=== PATIENT | female | born 1975 | race Caucasian/White ===

== ENCOUNTER 2017-05-09 06:09 | Emergency (ER) | payer OTHER ==
[~2017-05-09] VITALS: Ht 154.9 cm; Wt 86.0 kg
[2017-05-09 06:20] VITALS: Ht 154.9 cm; Wt 86.0 kg
[2017-05-09] MEDS ORDERED: HYDROmorphONE 1 MG/ML SYG IV STA (06:55)
[2017-05-09] MEDS ORDERED: ONDANSETRON 4 MG INJ IV STA (06:55)
[2017-05-09 07:51] LABS: BASOPHILS % 0.3 % (0.0-2.0); EOSINOPHILS % 0.2 % (0.0-7.0); HEMATOCRIT 34.5 % (37.0-47.0); HEMOGLOBIN 11.6 g/dl (12.0-16.0); LYMPHOCYTES # 1.3 10^3/ul (0.8-2.9); LYMPHOCYTES % 13.4 % (15.0-51.0); MEAN CORPUSCULAR HEMOGLOBIN 28.2 pg (29.0-33.0); MEAN CORPUSCULAR HGB CONC 33.6 g/dl (32.0-37.0); MEAN CORPUSCULAR VOLUME 83.7 fl (82.0-101.0); MEAN PLATELET VOLUME 11.3 fl (7.4-10.4); MONOCYTE # 0.5 10^3/ul (0.3-0.9); MONOCYTES % 5.3 % (0.0-11.0); NEUTROPHIL # 7.9 10^3/ul (1.6-7.5); NEUTROPHILS % 80.5 % (39.0-77.0); PLATELET COUNT 316 10^3/UL (140-415); RED BLOOD COUNT 4.12 10^6/ul (4.20-5.40); RED CELL DISTRIBUTION WIDTH 13.2 % (11.5-14.5); WHITE BLOOD COUNT 9.8 10^3/ul (4.8-10.8)
[2017-05-09 07:56] LABS: ADD UMIC YES; UR ASCORBIC ACID NEGATIVE (NEGATIVE); UR BACTERIA FEW /HPF (NONE SEEN); UR BILIRUBIN (Dip) NEGATIVE (NEGATIVE); UR BLOOD (Dip) 2+ mg/dL (NEGATIVE); UR CLARITY CLOUDY (CLEAR); UR COLOR YELLOW (YELLOW); UR GLUCOSE (Dip) NEGATIVE (NEGATIVE); UR KETONES (Dip) NEGATIVE (NEGATIVE); UR LEUKOCYTE ESTERASE (Dip) NEGATIVE Leu/ul (NEGATIVE); UR MUCUS FEW /HPF (NONE SEEN); UR NITRITE (Dip) NEGATIVE (NEGATIVE); UR RBC 3 /HPF (0-5); UR SPECIFIC GRAVITY (Dip) 1.025 (1.003-1.030); UR SQUAMOUS EPITHELIAL CELL MODERATE /HPF (FEW); UR TOTAL PROTEIN (Dip) NEGATIVE (NEGATIVE); UR UROBILINOGEN (Dip) NEGATIVE (NEGATIVE)
[2017-05-09 08:07] LABS: ALBUMIN 4.3 g/dl (3.3-4.9); ALBUMIN/GLOBULIN RATIO 1.38; BILIRUBIN,INDIRECT 0.2 mg/dl (0-1.1); BILIRUBIN,TOTAL 0.2 mg/dl (0.2-1.3); CALCIUM 9.1 mg/dl (8.4-10.2); CREATININE 0.66 mg/dl (0.44-1.00); POTASSIUM 4.1 mmol/L (3.5-5.1); TOTAL PROTEIN 7.4 g/dl (6.1-8.1)
[2017-05-09] MEDS ORDERED: SOD CHLORIDE 0.9% 100 ML ONE (08:55)
[2017-05-09] MEDS ORDERED: IOHEXOL 300MG/ML 30 ML BTL ONE (08:55)
--- NOTE | 2017-05-09 09:58 | RADRPT ---
PROCEDURE: CT abdomen and pelvis with contrast. CLINICAL INDICATION: Abdominal pain. Nausea and vomiting. TECHNIQUE: CT scan of the abdomen and pelvis with contrast [facility] The patient was scanned following the uncomplicated intravenous administration 100 cc of Omnipa que 300. Coronal and sagittal reformatted images were obtained from the axial source images. One or more of the following does reduction techniques were used: Automated exposure control; adjustment of the mA and/or kV according to patient size; use of the aorta of reconstruction technique. Images were reviewed on a high-resolution PACS workstation. The total exam CTDI equals 14.3 mGy and the tot al exam DLP equals 882 mGy-cm. COMPARISON: None. FINDINGS: There are mild dependent changes in the posterior lower lobes.. The heart size is normal, without p ericardial thickening or effusion. The liver, spleen, and pancreas are normal. The gallbladder is normal. The adrenal glands are symmetric and normal. The kidneys show normal and symmetric enhancement. No renal calculus or obstructive uropathy is seen. The aorta is of normal caliber. There is no retroperitoneal lymph node enlargment. There is no evidence of large or small bowel obstruction. There is mild to moderate retained colonic stool. A normal appendix is identified. No free fluid or fluid collections are identified. No inf lammatory changes are seen. There is a small periumbilical hernia containing only fat Uterus is present. There is a 3.0 cm enhancing mass arising from the anterior fundus of the uterus most consistent with a fibroid. There is no evidence of pelvic sidewall lymph node enlargement. Th e bladder is within normal limits. No significant pelvic free fluid is identified. The inguinal re gions are unremarkable. The osseous structures are intact. IMPRESSION: 1. No CT evidence of acute intra-abdominal or pelvic process. 2. Small periumbilical hernia containing only fat. 3. Uterine fibroid. RPTAT: KK .Rashad Talley MD, MD Date Time Electronically viewed and signed by .Rashad Talley MD, MD on 05/09/2017 09:58 .B/
[2017-05-09] MEDS ORDERED: ONDA4TAB14 PO (10:08)
[2017-05-09] MEDS ORDERED: HYDR-902 PO (10:08)
--- NOTE | 2017-05-09 10:13 | ERD ---
ER Documentation Chief Complaint Date/Time DATE: 05/09/17 TIME: 10:10 Chief Complaint Pt with AP, nuasea and weakness since 4AM, denies N/V/D. HPI This is a 42-year-old female with complaints this morning at 4 AM with onset of diffuse lower abdominal pain with nausea and vomiting 1 no diarrhea. No bili is or blood in the vomit. Pain is described as crampy and intermittent. No back pain no dysuria. The patient states she is scheduled for hysterectomy on May 18 for some abnormal cells. She has no vaginal bleeding. ROS All systems reviewed and are negative except as per history of present illness. Medications Home Meds Active Scripts Hydrocodone/Acetaminophen ([place] 10-325 Tablet) 1 Each Tablet, 1 TAB PO Q6H Y for PAIN, #15 TAB Prov:HANK SPRAGUE DO 05/09/17 Ondansetron (Ondansetron Odt) 4 Mg Tab.rapdis, 4 MG PO Q6H Y for NAUSEA AND/OR VOMITING, #10 TAB Prov:HANK SPRAGUE DO 05/09/17 Allergies Allergies: Coded Allergies: No Known Allergy (Unverified , 05/09/17) PMhx/Soc Hx Miscellaneous Medical Probl: Yes (abnormal cells in uterus) Hx Alcohol Use: No Hx Substance Use: No Hx Tobacco Use: No FmHx Family History: No coronary disease Physical Exam Vitals Vital Signs Date Time Temp Pulse Resp B/P Pulse Ox O2 Delivery O2 Flow Rate FiO2 05/09/17 06:20 97.6 69 16 117/71 99 Physical Exam Const: Well-developed, well-nourished Head: Atraumatic, normocephalic Eyes: Normal Conjunctiva, PERRLA, EOMI, normal sclera, no nystagmus ENT: Normal External Ears, Nose and Mouth, moist mucus membranes. Neck: Full range of motion. No meningismus, no lymphadenopathy. Resp: Clear to auscultation bilaterally, no wheezing, rhonchi, rales Cardio: Regular rate and rhythm, no murmurs, S1 S2 present Abd: Soft, diffuse lower abdominal tenderness mild, non distended. Normal bowel sounds, no guarding or rebound, no pulsitile abdominal masses or bruits Skin: No petechiae or rashes, no ecchymosis , no maculopapular rash Back: No midline or flank tenderness Ext: No cyanosis, or edema, FROM x 4, normal inspection, neurovascularly intact x 4 Neur: Awake and alert, STR 5/5 x 4, sensation intact x 4, no focal findings, cerebellum intact Psych: Normal Mood and Affect Result Diagram: 05/09/17 0730 05/09/17 0730 Results 24 hrs Laboratory Tests Test 05/09/17 07:15 05/09/17 07:30 Urine Color YELLOW Urine Clarity CLOUDY Urine pH 5.0 Urine Specific [place] 1.025 Urine Ketones NEGATIVEmg/dL Urine Nitrite NEGATIVEmg/dL Urine Bilirubin NEGATIVEmg/dL Urine Urobilinogen NEGATIVEmg/dL Urine Leukocyte Esterase NEGATIVELeu/ul Urine Microscopic RBC 3/HPF Urine Microscopic WBC 3/HPF Urine Squamous Epithelial Cells MODERATE/HPF Urine Bacteria FEW/HPF Urine Mucus FEW/HPF Urine Hemoglobin 2+mg/dL Urine Glucose NEGATIVEmg/dL Urine Total Protein NEGATIVEmg/dl White Blood Count 9.810^3/ul Red Blood Count 4.1210^6/ul Hemoglobin 11.6g/dl Hematocrit 34.5% Mean Corpuscular Volume 83.7fl Mean Corpuscular Hemoglobin 28.2pg Mean Corpuscular Hemoglobin Concent 33.6g/dl Red Cell Distribution Width 13.2% Platelet Count 79767^3/UL Mean Platelet Volume 11.3fl Neutrophils % 80.5% Lymphocytes % 13.4% Monocytes % 5.3% Eosinophils % 0.2% Basophils % 0.3% Nucleated Red Blood Cells % 0.0/100WBC Neutrophils # 7.910^3/ul Lymphocytes # 1.310^3/ul Monocytes # 0.510^3/ul Eosinophils # 0.010^3/ul Basophils # 0.010^3/ul Nucleated Red Blood Cells # 0.010^3/ul Sodium Level 142mmol/L Potassium Level 4.1mmol/L Chloride Level 103mmol/L Carbon Dioxide Level 23mmol/L Anion Gap 20 Blood Urea Nitrogen 13mg/dl Creatinine 0.66mg/dl Glucose Level 108mg/dl Calcium Level 9.1mg/dl Total Bilirubin 0.2mg/dl Direct Bilirubin 0.00mg/dl Indirect Bilirubin 0.2mg/dl Aspartate Amino Transf (AST/SGOT) 25IU/L Alanine Aminotransferase (ALT/SGPT) 31IU/L Alkaline Phosphatase 67IU/L Total Protein 7.4g/dl Albumin 4.3g/dl Globulin 3.10g/dl Albumin/Globulin Ratio 1.38 Current Medications Medications (Trade) Dose Ordered Sig/Pastor Route PRN Reason Start Time Stop Time Status Last Admin Dose Admin Hydromorphone HCl (Dilaudid) 1 mg ONCE STAT IV 05/09/17 06:55 05/09/17 06:57 DC 05/09/17 07:35 Ondansetron HCl (Zofran Inj) 4 mg ONCE STAT IV 05/09/17 06:55 05/09/17 06:57 DC 05/09/17 07:35 IV Flush 10 ml 10 ml STK-MED ONCE .ROUTE 05/09/17 08:55 05/09/17 08:56 DC Sodium Chloride (NS) 100 ml @ ud STK-MED ONCE .ROUTE 05/09/17 08:55 05/09/17 08:56 DC Iohexol (Omnipaque 300mg/ ml) 30 ml STK-MED ONCE .ROUTE 05/09/17 08:55 05/09/17 08:56 DC Procedures/MDM PROCEDURE: CT abdomen and pelvis with contrast. CLINICAL INDICATION: Abdominal pain. Nausea and vomiting. TECHNIQUE: CT scan of the abdomen and pelvis with contrast was performed on a multi-slice CT scanner. The patient was scanned following the uncomplicated intravenous administration 100 cc of Omnipaque 300. Coronal and sagittal reformatted images were obtained from the axial source images. One or more of the following does reduction techniques were used: Automated exposure control; adjustment of the mA and/or kV according to patient size; use of the aorta of reconstruction technique. Images were reviewed on a high-resolution PACS workstation. The total exam CTDI equals 14.3 mGy and the total exam DLP equals 882 mGy-cm. COMPARISON: None. FINDINGS: There are mild dependent changes in the posterior lower lobes.. The heart size is normal, without pericardial thickening or effusion. The liver, spleen, and pancreas are normal. The gallbladder is normal. The adrenal glands are symmetric and normal. The kidneys show normal and symmetric enhancement. No renal calculus or obstructive uropathy is seen. The aorta is of normal caliber. There is no retroperitoneal lymph node enlargment. There is no evidence of large or small bowel obstruction. There is mild to moderate retained colonic stool. A normal appendix is identified. No free fluid or fluid collections are identified. No inflammatory changes are seen. There is a small periumbilical hernia containing only fat Uterus is present. There is a 3.0 cm enhancing mass arising from the anterior fundus of the uterus most consistent with a fibroid. There is no evidence of pelvic sidewall lymph node enlargement. The bladder is within normal limits. No significant pelvic free fluid is identified. The inguinal regions are unremarkable. The osseous structures are intact. IMPRESSION: 1. No CT evidence of acute intra-abdominal or pelvic process. 2. Small periumbilical hernia containing only fat. 3. Uterine fibroid. RPTAT: KK .Rashad Talley MD, Date Time Electronically viewed and signed by .Rashad Talley MD, MD on 2016 09:58 .B/ CC: HANK SPRAGUE DO CT scan of the abdomen of blood work looks relatively unremarkable. Patient may have had a bad food exposure, a viral illness of the GI tract. No signs of appendicitis diverticulitis perforation Treat with symptomatic control and observation at home. Gave discharge warning signs to return Departure Diagnosis: Primary Impression: Abdominal pain Abdominal location: lower abdomen, unspecified Qualified Code: R10.30 - Lower abdominal pain Condition: Stable Patient Instructions: Abdominal Pain Referrals: [facility] OSBORNE (PCP) HANK SPRAGUE DO May 09, 2017 10:13
[2017-05-09 10:27] VITALS: BP 115/68; PULSE 81; RESP 18
== END 2017-05-09 10:28 | disposition home or self-care (01) ==
LOC: FTE 06:09
DX: R10.30 Lower abdominal pain, unspecified (principal); R11.2 Nausea with vomiting, unspecified
CPT/HCPCS: 36415; 74177; 80053; 81001; 85025; 96374; 96375; J1170; J2405; Q9967; Z7502; Z7610

== ENCOUNTER 2017-05-18 05:49 | Inpatient (IN) | payer OTHER ==
--- NOTE | 2017-05-16 01:21 | PREOPHP ---
DATE OF ADMISSION: 05/18/2017 REASON FOR ADMISSION: This patient is coming on 05/18/2017 for a surgical procedure. HISTORY OF PRESENT ILLNESS: This is a 42-year-old female, 2, para 2. This patient had been suffering from pelvic pain that has been intractable, fibroid uterus, and the uterine prolapse, grade 3. This patient has been having difficulties having intercourse due to pain and pain in her back as well. She had tried control pills, with no alleviation of her pain and with ibuprofen, with no relief, and at this time she has been asking for a permanent alleviation of her pain. The patient had been calling that she is miserable in pain, that nothing helps and due to the fact that she has a fibroid and a prolapse, she was offered a vaginal hysterectomy. Since she has a tubal ligation, she is not interested in having more children and we will try to do the hysterectomy through a vaginal approach with the possibility of DAISY in case of problems. This patient had a history of having had a sling for bladder incontinence. This was done in 2010 and she had an Advantage Monarc sling done at [facility]. That was the only procedure done. The patient is content in her urine, but she is having severe pain all the time. PAST MEDICAL HISTORY: Negative for heart disease, negative for lung disease, negative for GI disease, and no endocrine disease or neurologic or orthopedic disease. PAST SURGICAL HISTORY: The only surgeries she had was foot surgery, tubal ligation, and bladder sling, suburethral sling. MEDICATIONS: She is on: 1. Motrin. 2. Zoloft. 3. Antiallergic medication. 4. Antibiotics for prevention of infection. 5. She was recently Ambien and Xanax due to some family problems with her parents, recent father's Day and date of . ALLERGIES: THE PATIENT HAS NO HISTORY OF ANY ALLERGIES, SOCIAL HISTORY: The patient has no history of drug addiction, smoking or drinking. FAMILY HISTORY: Hypertension. PHYSICAL EXAMINATION: VITAL SIGNS: Normal blood pressure of 120/80. She weighs 191 pounds. She is 5 feet 1 inch tall. HEENT: Normal. NECK: Normal. BREASTS: Soft, nontender, no masses. CHEST: Clear. HEART: Normal sinus rhythm. BACK: Normal. ABDOMEN: Soft, nontender, no masses. GENITOURINARY: Normal external genitalia. The bladder is always tender. Uterus retroverted, flexed, with a prolapse, grade 2-3, with possibility of fibroid, and painful mobilization on the uterus. The adnexa are negative. EXTREMITIES: Normal with normal pulses, normal reflexes, and no edema. DIAGNOSES: 1. Intractable pelvic pain and bleeding. 2. Suburethral sling procedure. 3. Fibroid uterus. 4. Pelvic prolapse, grade 2-3. 5. Anxiety. PLAN: She is undergoing a vaginal total hysterectomy, possible total abdominal hysterectomy. She has been advised of the possible risks and possible complications of the surgery with the alternatives and options. Written information was provided. She had no more questions, and agreed to go ahead with the procedure with full understanding and no more questions. Dictated By: Christine Quesada MD /jerod/alo /Document#: [id number]
[2017-05-18] VITALS (21 sets, daily range): BP systolic 90–127; BP diastolic 52–70; PULSE 61–95; RESP 14–21; Ht 154.9 cm; Wt 86.5 kg
[~2017-05-18] VITALS: Ht 154.9 cm; Wt 86.5 kg
[~2017-05-18 05:49] MED LIST: HEMOSTATIC MATRIX SYG ZFS ONE; HYDR-902 PO; ONDA4TAB14 PO
[2017-05-18 06:50] LABS: INR 0.91; PROTIME 12.3 Sec (12.2-14.2)
[2017-05-18 06:51] LABS: PARTIAL THROMBOPLASTIN TIME 28.7 Sec (25.0-35.0)
[2017-05-18] MEDS ORDERED: DEXTROSE 5%-LR 1,000 ML IV ONE (07:00)
[2017-05-18] MEDS ORDERED: CEFAZOLIN 1 GM INJ ONE (07:00)
[2017-05-18] MEDS ORDERED: CEFAZOLIN 2 GM/50 ML (PMX) 50 ML IVPB ONE (07:00)
[2017-05-18] MEDS ORDERED: ROCURONIUM 50 MG INJ ONE (07:00)
[2017-05-18] MEDS ORDERED: LIDOCAINE 2% (SDV) 5 ML INJ ONE (07:05)
[2017-05-18] MEDS ORDERED: PROPOFOL 20 ML ONE (07:05)
[2017-05-18] MEDS ORDERED: SUCCINYLCHOLINE CHLORIDE 100 MG/5 ML SYG IV ONE (07:05)
[2017-05-18] MEDS ORDERED: FENTAnyl 50 MCG/ML VIAL ONE ×2 (07:05→09:44)
[2017-05-18] MEDS ORDERED: MIDAZOLAM 1 MG/ML 2 ML INJ ONE (07:05)
[2017-05-18] MEDS ORDERED: BUPIVACAINE 0.25%/EPI (SDV) 10 ML INJ ONE (07:21)
[2017-05-18] MEDS ORDERED: THROMBIN 5000 UNIT VIAL ONE (07:30)
--- NOTE | 2017-05-18 07:43 | HPN ---
Date/Time of Note Date/Time of Note DATE: 05/18/17 TIME: 07:42 Interval H&P Admission Note Pt. seen H&P reviewed: No system changes KODAK STRINGER MD May 18, 2017 07:43
[2017-05-18] MEDS ORDERED: HYDROmorphONE (0.2 MG/ML) 10ML SYG IV PRN ×2 (08:00)
[2017-05-18] MEDS ORDERED: PROCHLORPERAZINE 10 MG INJ IV PRN (08:00)
[2017-05-18] MEDS ORDERED: oxyCODONE 5 MG TAB PO PRN ×2 (08:00)
[2017-05-18] MEDS ORDERED: EPHEDrine SULFATE 50 MG/5 ML SYG IV PRN (08:00)
[2017-05-18] MEDS ORDERED: FENTAnyl 50 MCG/ML VIAL IV PRN (08:00)
[2017-05-18] MEDS ORDERED: ONDANSETRON 4 MG INJ IV PRN ×2 (08:00→11:00)
[2017-05-18] MEDS ORDERED: hydrALAzine 20 MG INJ IV PRN (08:00)
[2017-05-18] MEDS ORDERED: MEPERIDINE 25 MG INJ IV PRN (08:00)
[2017-05-18] MEDS ORDERED: LABETALOL HCL 20MG INJ IV PRN (08:00)
[2017-05-18] MEDS ORDERED: DIPHENHYDRAMINE 50 MG INJ IV PRN (08:00)
[2017-05-18] MEDS ORDERED: ACETAMINOPHEN 1000MG/100ML IV 100 ML ONE (08:05)
[2017-05-18] MEDS ORDERED: METOCLOPRAMIDE 10 MG INJ ONE (08:05)
[2017-05-18] MEDS ORDERED: DEXAMETHASONE 4 MG/ML 1 ML INJ ONE (08:05)
[2017-05-18] MEDS ORDERED: ONDANSETRON 4 MG INJ ONE (08:05)
[2017-05-18] MEDS ORDERED: BUPIVACAINE 0.25%/EPI (SDV) 10 ML INJ INJ ONE (08:21)
[2017-05-18] MEDS ORDERED: KETOROLAC 30 MG INJ ONE (09:19)
[2017-05-18] MEDS ORDERED: GLYCOPYRROLATE 0.4 MG INJ ONE (09:20)
[2017-05-18] MEDS ORDERED: NEOSTIGMINE 3 MG/3 ML SYRINGE ONE (09:20)
[2017-05-18] MEDS: LACTATED RINGER'S 1,000 ML IV SCH ×3 (10:27→20:54)
[2017-05-18] MEDS ORDERED: BISACODYL (EC) 5 MG TAB PO PRN (10:30)
[2017-05-18] MEDS ORDERED: DIPHENHYDRAMINE 50 MG CAP PO PRN (10:30)
[2017-05-18] MEDS ORDERED: HYDROCODONE/APAP (5/325) TAB PO PRN (10:30)
[2017-05-18] MEDS ORDERED: ZOLPIDEM 5 MG TAB PO PRN (10:30)
--- NOTE | 2017-05-18 10:37 | OPR ---
Date/Time of Note Date/Time of Note DATE: 05/18/17 TIME: 10:34 Operative Report Procedure Date: May 18, 2017 Preoperative Diagnosis INTRACTABLE PELVIC PAIN AND BLEEDING FIBROID UTERUS Postoperative Diagnosis SAME POLYCYSTIC OVARIES Operation Performed VAGINAL TOTAL HYSTERECTOMY Surgeon: KODAK STRINGER MD social science research assistant: CHRISTEN COVARRUBIAS M.D. Anesthesia Type: spinal Estimated Blood Loss: 200 - 250 ml's Transfusion Required: no Specimens UTERUS Complications: no Pt Condition Post Procedure: stable Disposition: PACU KODAK STRINGER MD May 18, 2017 10:37
[2017-05-18] MEDS ORDERED: HYDROmorphONE 1 MG/ML SYG ONE (10:43)
[2017-05-18] MEDS: HYDROmorphONE 1 MG/ML SYG IV PRN ×3 (11:03→20:07)
--- NOTE | 2017-05-18 11:09 | OPR ---
DATE OF OPERATION: 05/18/2017 OPERATION PERFORMED: Vaginal total hysterectomy under general anesthesia with Dr. Alonso. PREOPERATIVE DIAGNOSES: 1. Intractable pelvic pain and bleeding. 2. Fibroid uterus. 3. Pelvic prolapse, grade 2-3. 4. Anxiety. 5. Anemia. POSTOPERATIVE DIAGNOSES: 1. Intractable pelvic pain and bleeding. 2. Fibroid uterus. 3. Pelvic prolapse, grade 2-3. 4. Anxiety. 5. Anemia. 6. Polycystic ovaries. SURGEON: Dr. Quesada. PHYSICIAN OFFICE SPECIALIST: Dr. Sam. OPERATIVE PROCEDURE: The patient was given general anesthesia, placed in the lithotomy position. The perineal and vaginal area were prepped and draped. The vaginal speculum was applied and the cervix was held and an injection with xylocaine and epinephrine was given at the cervicovaginal junction. A 2nd incision was made. The anterior cul-de-sac was found. The posterior cul-de-sac was found. The cardinal ligaments were clamped and the uterosacral ligaments were clamped with Pat clamps, and they were incised and [id number] sutures with #1 Vicryl were applied and these sutures were held. The uterine vessels were clamped with the LigaSure instrument, which was use without complications, and the incision of the uterine vessels was done as well. The uterus was inverted and the adnexal pedicle holding the ovarian ligament and tube was clamped with Pat clamps, and the uterus was removed. The adnexal pedicles were tied with double stitches with #1 Vicryl and the sutures were held. There was some vaginal bleeding from the posterior vaginal wall that was approached with interrupted sutures with #1 Vicryl. Hemostasis was good. The visualization of the ovaries revealed that they were polycystic with some endometrial implants. The left tube was slightly bleeding at the fimbriated end, and this portion of the tube was excised with the ligature. A pursestring suture was done around the peritoneum and a #0 Vicryl was used and the cavity was closed. The cardinal ligaments, uterosacral ligaments, and adnexal pedicles were tied to each lateral side and the sutures were brought out through the anterior and posterior vaginal wall and the tying of the sutures lifted the vaginal cuff. The rest of the vagina was closed with interrupted sutures with #1 Vicryl. Hemostasis was good. The patient was stable at this time. Sponge counts, instrument counts, needle counts were correct. The Landin catheter was placed with clear urine and Xeroform gauze was left in the vagina. The patient left the OR awake and stable. Again, intravenous antibiotics were given for prophylaxis. Dictated By: Christine Quesada MD /jerod/garry /Document#: [id number]
[2017-05-18] MEDS: KETOROLAC 30 MG INJ IV SCH ×3 (11:45→21:51)
[2017-05-18] MEDS: METOCLOPRAMIDE 10 MG TAB PO SCH ×3 (12:12→23:52)
[2017-05-18] MEDS: CEFAZOLIN 1 GM/50 ML (PMX) 50 ML IVPB SCH ×2 (14:44→21:51)
[2017-05-19 01:11] VITALS: BP 99/57; RESP 20
[2017-05-19] MEDS: KETOROLAC 30 MG INJ IV SCH ×4 (05:09→22:11)
[2017-05-19] MEDS: CEFAZOLIN 1 GM/50 ML (PMX) 50 ML IVPB SCH (05:10)
[2017-05-19] MEDS: METOCLOPRAMIDE 10 MG TAB PO SCH ×3 (05:10→17:44)
[2017-05-19 05:13] LABS: BASOPHILS % 0.2 % (0.0-2.0); HEMATOCRIT 30.9 % (37.0-47.0); LYMPHOCYTES % 15.1 % (15.0-51.0); MEAN CORPUSCULAR HEMOGLOBIN 27.3 pg (29.0-33.0); MEAN CORPUSCULAR HGB CONC 32.4 g/dl (32.0-37.0); MEAN CORPUSCULAR VOLUME 84.4 fl (82.0-101.0); MONOCYTE # 0.8 10^3/ul (0.3-0.9); MONOCYTES % 5.7 % (0.0-11.0); NEUTROPHIL # 10.3 10^3/ul (1.6-7.5); NEUTROPHILS % 78.6 % (39.0-77.0); PLATELET COUNT 309 10^3/UL (140-415); RED BLOOD COUNT 3.66 10^6/ul (4.20-5.40); RED CELL DISTRIBUTION WIDTH 13.6 % (11.5-14.5); WHITE BLOOD COUNT 13.1 10^3/ul (4.8-10.8)
[2017-05-19] MEDS: LACTATED RINGER'S 1,000 ML IV SCH (05:17)
[2017-05-19 05:43] LABS: CREATININE 0.6 mg/dl (0.44-1.00); POTASSIUM 4.1 mmol/L (3.5-5.1)
[2017-05-19] MEDS: HYDROCODONE/APAP (5/325) TAB PO PRN ×2 (06:43→13:43)
[2017-05-19 06:44] VITALS: BP 117/65; PULSE 80; RESP 18
[2017-05-19 08:44] VITALS: BP 102/55; RESP 18
--- NOTE | 2017-05-19 09:36 | PN ---
Date/Time of Note Date/Time of Note DATE: 05/19/17 TIME: 09:34 Assessment/Plan Lines/Catheters IV Catheter Type (from Nrsg): Peripheral IV Landin in Place (from Nrsg): Yes Subjective 24 Hr Interval Summary Patient is febrile with control of her pain with Toradol. She was explained about the surgical procedure and she is very appreciative of that. Anemic today but with no symptoms of shortness of breath chest pain or any fainting spell Constitutional: no complaints Feeding: advancing diet Pain Control: well controlled Detailed Summary Eyes: no complaints ENT: no complaints Respiratory: no complaints Cardiovascular: no complaints Gastrointestinal: no complaints Genitourinary: no complaints Musculoskeletal: no complaints Skin: no complaints Neurologic: no complaints Endocrine: no complaints Lymphatic: no complaints Psychological: nl mood/affect, no complaints Immunologic: no complaints Exam/Review of Systems Vital Signs Vitals Vital Signs Date Time Temp Pulse Resp B/P Pulse Ox O2 Delivery O2 Flow Rate FiO2 05/19/17 08:44 98.3 67 18 102/55 96 05/19/17 06:44 Room Air 05/18/17 20:10 2.0 Intake and Output 05/18/17 05/18/17 05/19/17 15:00 23:00 07:00 Intake Total 1150 ml 1780 ml 1200 ml Output Total 575 ml 750 ml 140 ml Balance 575 ml 1030 ml 1060 ml Exam Constitutional: alert, oriented, well developed Psych: nl mood/affect, no complaints Head: atraumatic, normocephalic Eyes: EOMI, nl conjunctiva, nl lids, nl sclera ENMT: mucosa pink and moist, nl external ears & nose, nl lips & teeth, nl nasal mucosa & septum Neck: non-tender, supple Respiratory: clear to auscultation, normal air movement Cardiovascular: nl pulses, regular rate and rhythm Gastrointestinal: nl liver, spleen, non-tender, soft Musculoskeletal: nl extremities to inspection, nl gait and stance Extremities: normal pulses Neurological: BOTTOMING ROOM INSPECTOR II-XII intact, nl mental status, nl speech, nl strength Skin: nl turgor, rash or lesions Lymph: nl lymph nodes Results Result Diagram: 05/19/17 0427 05/19/17 0427 KODAK STRINGER MD May 19, 2017 09:35
[2017-05-19 14:27] VITALS: BP 114/56; RESP 14
[2017-05-19 20:44] VITALS: BP 125/68; RESP 20
[2017-05-20] MEDS: HYDROCODONE/APAP (5/325) TAB PO PRN (00:12)
[2017-05-20] MEDS: METOCLOPRAMIDE 10 MG TAB PO SCH ×2 (00:12→06:09)
[2017-05-20] MEDS: KETOROLAC 30 MG INJ IV SCH ×2 (05:01→10:36)
[2017-05-20 06:09] LABS: BASOPHILS % 0.3 % (0.0-2.0); EOSINOPHILS # 0.1 10^3/ul (0.0-0.5); EOSINOPHILS % 1.1 % (0.0-7.0); HEMATOCRIT 29.5 % (37.0-47.0); HEMOGLOBIN 9.6 g/dl (12.0-16.0); LYMPHOCYTES # 3.2 10^3/ul (0.8-2.9); LYMPHOCYTES % 36.4 % (15.0-51.0); MEAN CORPUSCULAR HGB CONC 32.5 g/dl (32.0-37.0); MEAN PLATELET VOLUME 12.2 fl (7.4-10.4); MONOCYTE # 0.6 10^3/ul (0.3-0.9); MONOCYTES % 6.4 % (0.0-11.0); NEUTROPHILS % 55.6 % (39.0-77.0); PLATELET COUNT 289 10^3/UL (140-415); RED BLOOD COUNT 3.43 10^6/ul (4.20-5.40); RED CELL DISTRIBUTION WIDTH 13.8 % (11.5-14.5); WHITE BLOOD COUNT 8.9 10^3/ul (4.8-10.8)
[2017-05-20 08:32] VITALS: BP 125/71; RESP 20
--- NOTE | 2017-05-20 15:44 | DS ---
Date/Time of Note Date/Time of Note DATE: 05/20/17 TIME: 15:28 Discharge Summary Admission/Discharge Info Admit Date/Time May 18, 2017 at 05:49 Discharge Date/Time May 20, 2017 at 11:45 Discharge Diagnosis intractable pelvic pain and bleeding fibroid uterus pelvic prolapse Procedures vaginal total hysterectomy Hx of Present Illness 42 years old multigravida history of severe bleeding with pain due to fibroids also with pelvic prolapse. anemic and chronic fatigue fibroid was big she was offered a hysterectomy since the patient tried all kinds of medicines without success. Hospital Course she underwent a vaginal hysterectomy and she went home stable without complication on day 2 of her surgery her laboratory test revealed anemia but asymtomatic.. she was eating,voiding well, and with bm. had been ambulating. wishing to go home since her pain is controlled with oral meds Home Meds Active Scripts Hydrocodone/Acetaminophen ([place] 10-325 Tablet) 1 Each Tablet, 1 TAB PO Q6H Y for PAIN, #15 TAB Prov:HANK SPRAGUE DO 05/09/17 Ondansetron (Ondansetron Odt) 4 Mg Tab.rapdis, 4 MG PO Q6H Y for NAUSEA AND/OR VOMITING, #10 TAB Prov:HANK SPRAGUE DO 05/09/17 Primary Care Provider Care Physician No Primary Pending Labs Laboratory Tests Test 05/20/17 04:32 05/20/17 07:44 White Blood Count 8.910^3/ul (4.8-10.8) Red Blood Count 3.4310^6/ul (4.20-5.40) Hemoglobin 9.6g/dl (12.0-16.0) Hematocrit 29.5% (37.0-47.0) Mean Corpuscular Volume 86.0fl (82.0-101.0) Mean Corpuscular Hemoglobin 28.0pg (29.0-33.0) Mean Corpuscular Hemoglobin Concent 32.5g/dl (32.0-37.0) Red Cell Distribution Width 13.8% (11.5-14.5) Platelet Count 39090^3/UL (140-415) Mean Platelet Volume 12.2fl (7.4-10.4) Neutrophils % 55.6% (39.0-77.0) Lymphocytes % 36.4% (15.0-51.0) Monocytes % 6.4% (0.0-11.0) Eosinophils % 1.1% (0.0-7.0) Basophils % 0.3% (0.0-2.0) Nucleated Red Blood Cells % 0.0/100WBC (0.0-0.0) Neutrophils # 5.010^3/ul (1.6-7.5) Lymphocytes # 3.210^3/ul (0.8-2.9) Monocytes # 0.610^3/ul (0.3-0.9) Eosinophils # 0.110^3/ul (0.0-0.5) Basophils # 0.010^3/ul (0.0-0.1) Nucleated Red Blood Cells # 0.010^3/ul (0.0-0.0) Lab Scanned Report [id number] KODAK STRINGER MD May 20, 2017 15:38
== END 2017-05-20 11:45 | disposition home or self-care (01) | DRG 743 ==
LOC: REC 05:49 → EDSTATUS 07:30 → MS1 10:58
PROVIDERS: ADMIT Obstetrics & Gynecology; ATTEND Obstetrics & Gynecology
PROC: 0UTC7ZZ Resection of Cervix, Via Natural or Artificial Opening (ICD-10-PCS; 2017-05-18)
PROC: 0UT97ZZ Resection of Uterus, Via Natural or Artificial Opening (ICD-10-PCS; principal; 2017-05-18 07:30)
DX: D25.9 Leiomyoma of uterus, unspecified (principal); E66.01 Morbid (severe) obesity due to excess calories; N81.3 Complete uterovaginal prolapse; E28.2 Polycystic ovarian syndrome; F41.9 Anxiety disorder, unspecified; D64.9 Anemia, unspecified; Z68.36 Body mass index [BMI] 36.0-36.9, adult
CPT/HCPCS: 80051; 82565; 84520; 85025; 85610; 85730; 86850; 86900; 86901; 86920; 87086; 88305; J0131; J0690; J1100; J1170; J1885; J2250; J2405; J2710; J2765; J3010; J7120; J7121; J7999